=== PATIENT | female | born 2005 | race Caucasian/White ===

== ENCOUNTER 2023-05-31 19:16 | Emergency (ER) | payer BC ==
[2023-05-31 22:22] LABS: BASE EXCESS VENOUS 1.6 (-2.0-3.0); BASOPHILS ABSOLUTE AUTO 0.02 K/uL (0.00-0.30); BASOPHILS PERCENT AUTO 0.2 % (0.0-1.0); BICARBONATE,VENOUS 26 mEq/L (23-28); EOSINOPHILS ABSOLUTE AUTO 0.01 K/uL (0.00-0.70); EOSINOPHILS PERCENT AUTO 0.1 % (0.0-5.0); HEMATOCRIT 36.9 % (37.0-47.0); HEMOGLOBIN 13.1 g/dL (12.0-16.0); IMMATURE GRAN ABSOLUTE AUTO 0.03 K/uL (0.00-0.05); IMMATURE GRAN PERCENT AUTO 0.3 % (0.0-0.4); LYMPHOCYTES ABSOLUTE AUTO 1.17 K/uL (2.00-8.80); LYMPHOCYTES PERCENT AUTO 11.3 % (50.0-65.0); MEAN CORPUSCULAR HEMOGLOBIN 28.4 pg (28.0-32.0); MEAN CORPUSCULAR HGB CONC 35.5 g/dL (32.0-36.0); MEAN PLATELET VOLUME 10.7 fL (9.4-12.3); MONOCYTES ABSOLUTE AUTO 0.74 K/uL (0.10-1.40); MONOCYTES PERCENT AUTO 7.1 % (2.0-10.0); PCO2 VENOUS 41 mmHG (41-51); PH,VENOUS 7.42 (7.31-7.41); PLATELET COUNT,PLT 183 K/uL (150-400); RED BLOOD CELL COUNT 4.61 M/uL (4.10-5.30); WHITE BLOOD CELL COUNT,WBC 10.37 K/uL (4.5-13.5)
[2023-05-31 22:23] LABS: PO2 VENOUS < 30 mmHG
[2023-05-31] MEDS: cefTRIAXone 1 GM in Sodium Chloride 0.9% 50 ML IV ONE (22:48)
[2023-05-31] MEDS: Ondansetron 4 MG/2 ML SDV IVPUSH ONE (22:48)
[2023-05-31] MEDS: Sodium Chloride 0.9% 2.5 ML Syringe FLUSH PRN (22:48)
[2023-05-31] MEDS: Sodium Chloride 0.9% 10 ML Syringe FLUSH PRN (22:48)
[2023-05-31 22:49] LABS: A/G RATIO 0.7 (0.9-1.6); ALANINE AMINOTRANSFERASE,ALT 30 IU/L (14-63); ALBUMIN 3.2 g/dL (3.4-5.0); ALKALINE PHOSPHATASE 117 U/L (46-116); ASPARTATE AMNIOTRANSFERASE,AST 12 IU/L (15-37); BILIRUBIN TOTAL 0.4 mg/dL (0.2-1.0); BLOOD UREA NITROGEN,BUN 8 mg/dL (7.0-18.0); CARBON DIOXIDE,CO2 27.2 mmol/L (21.0-32.0); CHLORIDE,CL 100 mmol/L (98-107); CREATININE 0.8 mg/dL (0.6-1.0); EST CRCL DRUG DOSING (CG) 93.56 mL/min; GLUCOSE RANDOM 105 mg/dL (74-106); LIPASE 19 U/L (16-77); POTASSIUM,K 3.3 mmol/L (3.5-5.1); PROTEIN TOTAL,TP 7.5 g/dL (6.4-8.2); SODIUM,NA 137 mmol/L (136-145)
[2023-05-31 22:52] LABS: LACTIC ACID 1.9 mmol/L (0.4-2.0)
[2023-05-31] MEDS: Sodium Chloride 0.9% 1,000 ML IV ONE (22:53)
[2023-05-31 22:56] LABS: ESTIMATED GFR 109 mL/min (>60)
[2023-05-31 23:00] LABS: APPEARANCE,URINE CLEAR; BILIRUBIN,URINE NEGATIVE (NEGATIVE); COLOR,URINE YELLOW; GLUCOSE,URINE 500 mg/dL (NEGATIVE); KETONES,URINE NEGATIVE (NEGATIVE); LEUKOCYTE ESTERASE,URINE NEGATIVE (NEGATIVE); NITRITE,URINE NEGATIVE (NEGATIVE); OCCULT BLOOD,URINE NEGATIVE (NEGATIVE); PH,URINE 7.5 (5.0-8.0); PROTEIN,URINE 30 mg/dL (NEGATIVE)
[2023-05-31 23:06] LABS: BACTERIA,URINE FEW (NEGATIVE); EPITHELIAL CELLS,URINE RARE (NONE-FEW)
[2023-05-31 23:06] LABS: CORONAVIRUS COVID-19 NAA NEGATIVE (NEGATIVE); INFLUENZA A NAA NEGATIVE (NEGATIVE); INFLUENZA B NAA NEGATIVE (NEGATIVE)
[2023-05-31] MEDS: Iopamidol 755 MG/ML 500 ML Multipack Bottle IVPUSH STA (23:43)
== END 2023-06-01 01:14 | disposition home or self-care (01) ==
LOC: MW.ED 19:16
DX: N12 Tubulo-interstitial nephritis, not specified as acute or chronic (principal); E10.9 Type 1 diabetes mellitus without complications; Z79.4 Long term (current) use of insulin; Z79.899 Other long term (current) drug therapy
CPT/HCPCS: 0240U; 36415; 74177; 80053; 81001; 82009; 82803; 82947; 83605; 83690; 84484; 84703; 85025; 87040; 87086; 96361; 96365; 96375; 99284; J0696; J2405; J3490; J7030; Q9967; 93010